=== PATIENT | male | born 1965 | race Caucasian/White ===

== ENCOUNTER 2016-03-30 18:15 | Outpatient (CLI) | payer MEDICARE, MEDICAID ==
[2016-03-31 14:13] LABS: #Basophils 0.1 thou/uL (0.0-0.2); #Monocytes 0.4 thou/uL (0.11-0.59); #Neutrophils 3.7 thou/uL (1.40-6.50); %Basophils 1.3 % (0.0-1.0); %Eosinophils 0.8 % (0.0-10.0); %Monocytes 7.8 % (0.0-10.0); Hematocrit 44.6 % (42.0-52.0); Mean Platelet Volume 6.8 fL (7.4-10.4); Red Blood Cell (RBC) Count 4.62 mill/uL (4.70-6.10); White Blood Cell (WBC) Count 5.2 thou/uL (4.8-10.8)
[2016-03-31 20:51] LABS: ALT (SGPT) 24 U/L (0-55); AST (SGOT) 23 U/L (5-34); Alkaline Phosphatase 82 U/L (40-150); Anion Gap 17 mmol/L (10-20); BUN (Urea Nitrogen) 6 mg/dL (8.4-25.7); Bilirubin, Total 0.3 mg/dL (0.2-1.2); Calc. Creatinine Clearance 0 mL/min (70-130); Calcium 9.6 mg/dL (7.8-10.44); Carbon Dioxide 23 mmol/L (22-29); Chloride 100 mmol/L (98-107); Estimated GFR-MDRD Greater than 90; Globulin 2.4 g/dL (2.4-3.5); LDL Cholesterol, Calculated 77 mg/dL
== END 2016-03-30 18:16 | disposition home or self-care (01) ==
LOC: HPCALD 18:15
PROVIDERS: ATTEND Family Medicine
DX: Z12.5 Encounter for screening for malignant neoplasm of prostate (principal); E78.5 Hyperlipidemia, unspecified; I10 Essential (primary) hypertension
CPT/HCPCS: 80053; 80061; 85025; G0103

== ENCOUNTER 2016-09-28 11:48 | Outpatient (CLI) | payer MEDICARE, MEDICAID ==
[2016-09-28 12:06] LABS: #Basophils 0.1 thou/uL (0.0-0.2); #Lymphocytes 0.9 thou/uL (1.20-3.40); #Monocytes 0.5 thou/uL (0.11-0.59); %Basophils 1.2 % (0.0-1.0); %Eosinophils 0.7 % (0.0-10.0); %Lymphocytes 13.8 % (21.0-51.0); %Monocytes 7.8 % (0.0-10.0); %Neutrophils 76.6 % (42.0-75.0); Hemoglobin 15.7 g/dL (14.0-18.0); Mean Corpuscular HGB CONC 35.2 g/dL (32.0-36.0); Mean Corpuscular Hemoglobin 32.4 pg (27.0-31.0); Mean Platelet Volume 7.8 fL (7.4-10.4); Platelet Count 205 thou/uL (130-400); RBC Distribution Width 11.4 % (11.5-14.5); Red Blood Cell (RBC) Count 4.84 mill/uL (4.70-6.10); White Blood Cell (WBC) Count 6.6 thou/uL (4.8-10.8)
[2016-09-28 12:21] LABS: ALT (SGPT) 26 U/L (8-55); AST (SGOT) 24 U/L (5-34); Albumin 4.5 g/dL (3.5-5.0); Alkaline Phosphatase 87 U/L (40-150); Anion Gap 15 mmol/L (10-20); BUN (Urea Nitrogen) 7 mg/dL (8.4-25.7); Bilirubin, Total 0.7 mg/dL (0.2-1.2); Calc. Creatinine Clearance 0 mL/min (70-130); Calcium 9.5 mg/dL (7.8-10.44); Carbon Dioxide 26 mmol/L (22-29); Chloride 95 mmol/L (98-107); Cholesterol 131 mg/dl (< 200 Desired); Estimated GFR-MDRD Greater than 90; Globulin 2.2 g/dL (2.4-3.5); Glucose 110 mg/dL (70-105); HDL Cholesterol 33 mg/dL (>60 Neg Risk); LDL Cholesterol, Calculated 76 mg/dL; Potassium 4.9 mmol/L (3.5-5.1); Protein, Total 6.7 g/dL (6.0-8.3); Sodium 131 mmol/L (136-145); Triglycerides 108 mg/dL (Less than 150)
== END 2016-09-28 11:49 | disposition home or self-care (01) ==
LOC: HPCALD 11:48
PROVIDERS: ATTEND Family Medicine
DX: E78.5 Hyperlipidemia, unspecified (principal); I10 Essential (primary) hypertension
CPT/HCPCS: 36415; 80053; 80061; 84443; 85025

== ENCOUNTER 2021-04-08 15:09 | Emergency (ER) | payer MEDICARE, MEDICAID ==
[2021-04-08 16:17] LABS: #Basophils 0.1 thou/uL (0.0-0.2); #Eosinphils 0.1 thou/uL (0.0-0.7); #Lymphocytes 0.5 thou/uL (1.20-3.40); #Monocytes 0.5 thou/uL (0.11-0.59); #Neutrophils 7.2 thou/uL (1.40-6.50); %Basophils 0.8 % (0.0-1.0); %Eosinophils 0.6 % (0.0-10.0); %Lymphocytes 6.2 % (21.0-51.0); %Monocytes 6.2 % (0.0-10.0); %Neutrophils 86.1 % (42.0-75.0); Hemoglobin 13.5 g/dL (14.0-18.0); Mean Corpuscular HGB CONC 34.3 g/dL (32.0-36.0); Mean Corpuscular Hemoglobin 32.8 pg (27.0-31.0); Mean Corpuscular Volume 95.5 fL (78.0-98.0); Platelet Count 147 thou/uL (130-400); RBC Distribution Width 11.7 % (11.5-14.5); Red Blood Cell (RBC) Count 4.11 mill/uL (4.70-6.10); White Blood Cell (WBC) Count 8.3 thou/uL (4.8-10.8)
[2021-04-08 16:35] LABS: ALT (SGPT) 21 U/L (8-55); AST (SGOT) 24 U/L (5-34); Alkaline Phosphatase 72 U/L (40-110); Anion Gap 12 mmol/L (10-20); BUN (Urea Nitrogen) Less than 4 mg/dL (8.4-25.7); Bilirubin, Total 0.7 mg/dL (0.2-1.2); Calc. Creatinine Clearance 0 mL/min (70-130); Calcium 8.9 mg/dL (7.8-10.44); Carbon Dioxide 24 mmol/L (22-29); Chloride 94 mmol/L (98-107); Globulin 2.1 g/dL (2.4-3.5); Glucose 119 mg/dL (70-105); Potassium 4.4 mmol/L (3.5-5.1); Protein, Total 6.1 g/dL (6.0-8.3); Sodium 126 mmol/L (136-145)
[2021-04-08] MEDS ORDERED: Fentanyl 100 MCG/2 ML VIAL ONE (17:08)
[2021-04-08 17:09] LABS: SARS-CoV-2 NAA Rapid Test Not Detected (NotDetected)
[2021-04-08] MEDS ORDERED: Ondansetron PF 4 MG/2 ML Vial ONE (17:09)
== END 2021-04-08 17:39 | disposition short-term general hospital (02) ==
LOC: BURERS 15:09
DX: S72.012A Unspecified intracapsular fracture of left femur, initial encounter for closed fracture (principal); E87.1 Hypo-osmolality and hyponatremia; E78.5 Hyperlipidemia, unspecified; I10 Essential (primary) hypertension; Z20.822 Contact with and (suspected) exposure to COVID-19; Z79.899 Other long term (current) drug therapy; W01.0XXA Fall on same level from slipping, tripping and stumbling without subsequent striking against object, initial encounter
CPT/HCPCS: 80053; 85025; 96374; 96375; J2405; J3010; U0002

== ENCOUNTER 2021-04-13 19:29 | Inpatient (IN) | payer MEDICARE, OTHER ==
[2021-04-14 17:22] VITALS: BMI 22.8
[2021-04-14] MEDS: Ferrous Gluconate 324 MG TAB PO SCH (18:45)
[2021-04-14] MEDS: Acetaminophen 500 MG TAB PO SCH (21:19)
[2021-04-14] MEDS: Cyanocobalamin (Vitamin B-12) 1,000 MCG TAB PO SCH (21:21)
[2021-04-14] MEDS: risperiDONE 0.5 MG TAB PO SCH (21:21)
[2021-04-14] MEDS: Aspirin 325 MG TAB PO SCH (21:21)
[2021-04-14] MEDS: Benztropine 1 MG TAB PO SCH (21:21)
[2021-04-14] MEDS: diphenhydrAMINE 25 MG CAP PO SCH (21:21)
[2021-04-14] MEDS: Atorvastatin Calcium 10 MG TAB PO SCH (21:21)
[2021-04-14] MEDS: Albuterol Sulfate 2.5 mg/3 ml Neb NEB SCH (21:23)
[2021-04-14] MEDS: Fluticasone Propionate Nasal Spray 16 gm Bottle NASAL SCH (23:41)
[2021-04-14] MEDS: Mometasone 100 MCG/PUFF (1 INHALER) INH SCH (23:44)
[2021-04-15] MEDS: Acetaminophen 500 MG TAB PO SCH ×4 (03:13→20:23)
[2021-04-15] MEDS: Ferrous Gluconate 324 MG TAB PO SCH ×2 (09:59→16:06)
[2021-04-15] MEDS: Aspirin 325 MG TAB PO SCH ×2 (09:59→20:25)
[2021-04-15] MEDS: Benztropine 1 MG TAB PO SCH ×2 (09:59→20:25)
[2021-04-15] MEDS: Cholecalciferol 1,000 UNITS (25 MCG) TAB PO SCH (09:59)
[2021-04-15] MEDS: Cyanocobalamin (Vitamin B-12) 1,000 MCG TAB PO SCH ×2 (10:00→20:25)
[2021-04-15] MEDS: Losartan Potassium 50 MG TAB PO SCH (10:00)
[2021-04-15] MEDS: risperiDONE 0.5 MG TAB PO SCH ×2 (10:01→21:32)
[2021-04-15] MEDS: Fluticasone Propionate Nasal Spray 16 gm Bottle NASAL SCH ×2 (10:01→21:31)
[2021-04-15] MEDS: Mometasone 100 MCG/PUFF (1 INHALER) INH SCH ×2 (10:02→20:27)
[2021-04-15] MEDS: Albuterol Sulfate 2.5 mg/3 ml Neb NEB SCH ×2 (10:07→20:42)
[2021-04-15] MEDS: Azelastine 137 MCG/Spray 30 ML NS SCH (10:07)
[2021-04-15] MEDS: diphenhydrAMINE 25 MG CAP PO SCH (20:25)
[2021-04-15] MEDS: Atorvastatin Calcium 10 MG TAB PO SCH (21:39)
[2021-04-16] MEDS: Acetaminophen 500 MG TAB PO SCH ×4 (02:28→21:46)
[2021-04-16] MEDS: Cholecalciferol 1,000 UNITS (25 MCG) TAB PO SCH (08:44)
[2021-04-16] MEDS: Losartan Potassium 50 MG TAB PO SCH (08:44)
[2021-04-16] MEDS: Benztropine 1 MG TAB PO SCH ×2 (08:44→21:47)
[2021-04-16] MEDS: Cyanocobalamin (Vitamin B-12) 1,000 MCG TAB PO SCH ×2 (08:45→21:47)
[2021-04-16] MEDS: Ferrous Gluconate 324 MG TAB PO SCH ×2 (08:45→17:07)
[2021-04-16] MEDS: risperiDONE 0.5 MG TAB PO SCH ×2 (08:45→21:47)
[2021-04-16] MEDS: Aspirin 325 MG TAB PO SCH ×2 (08:45→21:47)
[2021-04-16] MEDS: Albuterol Sulfate 2.5 mg/3 ml Neb NEB SCH ×2 (08:46→21:55)
[2021-04-16] MEDS: Azelastine 137 MCG/Spray 30 ML NS SCH (08:48)
[2021-04-16] MEDS: Mometasone 100 MCG/PUFF (1 INHALER) INH SCH ×2 (08:49→21:47)
[2021-04-16] MEDS: Fluticasone Propionate Nasal Spray 16 gm Bottle NASAL SCH ×2 (09:20→21:55)
[2021-04-16] MEDS: diphenhydrAMINE 25 MG CAP PO SCH (21:47)
[2021-04-16] MEDS: Atorvastatin Calcium 10 MG TAB PO SCH (21:47)
[2021-04-17] MEDS: Acetaminophen 500 MG TAB PO SCH ×4 (04:13→20:54)
[2021-04-17] MEDS ORDERED: Lidocaine 1% w/Epinephrine 1:100K 20 ML VIAL ONE (07:47)
[2021-04-17] MEDS: Losartan Potassium 50 MG TAB PO SCH (08:46)
[2021-04-17] MEDS: Cholecalciferol 1,000 UNITS (25 MCG) TAB PO SCH (08:46)
[2021-04-17] MEDS: Aspirin 325 MG TAB PO SCH ×2 (08:46→20:51)
[2021-04-17] MEDS: Benztropine 1 MG TAB PO SCH ×2 (08:46→20:54)
[2021-04-17] MEDS: Cyanocobalamin (Vitamin B-12) 1,000 MCG TAB PO SCH ×2 (08:46→20:55)
[2021-04-17] MEDS: Ferrous Gluconate 324 MG TAB PO SCH ×2 (08:46→17:11)
[2021-04-17] MEDS: risperiDONE 0.5 MG TAB PO SCH ×2 (08:49→20:52)
[2021-04-17] MEDS: Fluticasone Propionate Nasal Spray 16 gm Bottle NASAL SCH ×2 (08:50→20:56)
[2021-04-17] MEDS: Mometasone 100 MCG/PUFF (1 INHALER) INH SCH ×2 (08:51→20:57)
[2021-04-17] MEDS: Azelastine 137 MCG/Spray 30 ML NS SCH (08:52)
[2021-04-17] MEDS: Albuterol Sulfate 2.5 mg/3 ml Neb NEB SCH ×2 (08:53→21:03)
[2021-04-17] MEDS: Sulfameth/Trimethoprim DS 800-160mg TAB PO SCH ×2 (10:44→20:52)
[2021-04-17] MEDS: Atorvastatin Calcium 10 MG TAB PO SCH (20:52)
[2021-04-17] MEDS: diphenhydrAMINE 25 MG CAP PO SCH (20:53)
[2021-04-18] MEDS: Acetaminophen 500 MG TAB PO SCH ×4 (02:32→21:28)
[2021-04-18] MEDS: Mometasone 100 MCG/PUFF (1 INHALER) INH SCH ×2 (09:19→21:30)
[2021-04-18] MEDS: Azelastine 137 MCG/Spray 30 ML NS SCH (09:19)
[2021-04-18] MEDS: Fluticasone Propionate Nasal Spray 16 gm Bottle NASAL SCH ×2 (09:20→21:30)
[2021-04-18] MEDS: Ferrous Gluconate 324 MG TAB PO SCH ×2 (09:21→16:44)
[2021-04-18] MEDS: Benztropine 1 MG TAB PO SCH ×2 (09:21→21:29)
[2021-04-18] MEDS: Cholecalciferol 1,000 UNITS (25 MCG) TAB PO SCH (09:22)
[2021-04-18] MEDS: Cyanocobalamin (Vitamin B-12) 1,000 MCG TAB PO SCH ×2 (09:22→21:30)
[2021-04-18] MEDS: Sulfameth/Trimethoprim DS 800-160mg TAB PO SCH ×2 (09:22→21:30)
[2021-04-18] MEDS: Losartan Potassium 50 MG TAB PO SCH (09:22)
[2021-04-18] MEDS: Aspirin 325 MG TAB PO SCH ×2 (09:22→21:29)
[2021-04-18] MEDS: risperiDONE 0.5 MG TAB PO SCH ×2 (09:24→21:30)
[2021-04-18] MEDS: Albuterol Sulfate 2.5 mg/3 ml Neb NEB SCH ×2 (09:24→21:28)
[2021-04-18] MEDS: Polyethylene Glycol 3350 17 GM Packet PO PRN (14:24)
[2021-04-18] MEDS: Atorvastatin Calcium 10 MG TAB PO SCH (21:29)
[2021-04-18] MEDS: diphenhydrAMINE 25 MG CAP PO SCH (21:30)
[2021-04-19] MEDS: Acetaminophen 500 MG TAB PO SCH ×4 (03:30→21:38)
[2021-04-19] MEDS: Ferrous Gluconate 324 MG TAB PO SCH ×2 (10:10→18:49)
[2021-04-19] MEDS: Sulfameth/Trimethoprim DS 800-160mg TAB PO SCH ×2 (10:10→21:40)
[2021-04-19] MEDS: Aspirin 325 MG TAB PO SCH ×2 (10:11→21:37)
[2021-04-19] MEDS: Cholecalciferol 1,000 UNITS (25 MCG) TAB PO SCH (10:12)
[2021-04-19] MEDS: Benztropine 1 MG TAB PO SCH ×2 (10:13→21:38)
[2021-04-19] MEDS: Cyanocobalamin (Vitamin B-12) 1,000 MCG TAB PO SCH ×2 (10:13→21:41)
[2021-04-19] MEDS: Azelastine 137 MCG/Spray 30 ML NS SCH (10:13)
[2021-04-19] MEDS: Fluticasone Propionate Nasal Spray 16 gm Bottle NASAL SCH ×2 (10:14→21:44)
[2021-04-19] MEDS: risperiDONE 0.5 MG TAB PO SCH ×2 (10:14→21:40)
[2021-04-19] MEDS: Albuterol Sulfate 2.5 mg/3 ml Neb NEB SCH ×2 (10:15→21:41)
[2021-04-19] MEDS: Mometasone 100 MCG/PUFF (1 INHALER) INH SCH ×2 (10:15→21:45)
[2021-04-19] MEDS: Polyethylene Glycol 3350 17 GM Packet PO PRN (10:16)
[2021-04-19] MEDS: Losartan Potassium 50 MG TAB PO SCH (16:03)
[2021-04-19] MEDS: diphenhydrAMINE 25 MG CAP PO SCH (21:38)
[2021-04-19] MEDS: Atorvastatin Calcium 10 MG TAB PO SCH (21:39)
[2021-04-20] MEDS: Acetaminophen 500 MG TAB PO SCH ×4 (02:47→21:23)
[2021-04-20] MEDS: risperiDONE 0.5 MG TAB PO SCH ×2 (08:44→21:23)
[2021-04-20] MEDS: Cholecalciferol 1,000 UNITS (25 MCG) TAB PO SCH (08:44)
[2021-04-20] MEDS: Losartan Potassium 50 MG TAB PO SCH (08:44)
[2021-04-20] MEDS: Cyanocobalamin (Vitamin B-12) 1,000 MCG TAB PO SCH ×2 (08:44→21:23)
[2021-04-20] MEDS: Benztropine 1 MG TAB PO SCH ×2 (08:45→21:24)
[2021-04-20] MEDS: Ferrous Gluconate 324 MG TAB PO SCH ×2 (08:45→17:18)
[2021-04-20] MEDS: Sulfameth/Trimethoprim DS 800-160mg TAB PO SCH ×2 (08:45→21:24)
[2021-04-20] MEDS: Aspirin 325 MG TAB PO SCH ×2 (08:45→21:24)
[2021-04-20] MEDS: Albuterol Sulfate 2.5 mg/3 ml Neb NEB SCH ×2 (08:46→21:24)
[2021-04-20] MEDS: Mometasone 100 MCG/PUFF (1 INHALER) INH SCH ×2 (08:52→21:25)
[2021-04-20] MEDS: Fluticasone Propionate Nasal Spray 16 gm Bottle NASAL SCH ×2 (08:53→21:26)
[2021-04-20] MEDS: Azelastine 137 MCG/Spray 30 ML NS SCH (08:54)
[2021-04-20 12:47] LABS: SARS-CoV-2 PCR by NAA Not Detected (NotDetected)
[2021-04-20] MEDS: diphenhydrAMINE 25 MG CAP PO SCH (21:24)
[2021-04-20] MEDS: Atorvastatin Calcium 10 MG TAB PO SCH (21:24)
[2021-04-21] MEDS: Acetaminophen 500 MG TAB PO SCH ×4 (02:30→21:35)
[2021-04-21] MEDS: Losartan Potassium 50 MG TAB PO SCH (08:59)
[2021-04-21] MEDS: risperiDONE 0.5 MG TAB PO SCH ×2 (08:59→21:34)
[2021-04-21] MEDS: Benztropine 1 MG TAB PO SCH ×2 (09:00→21:35)
[2021-04-21] MEDS: Aspirin 325 MG TAB PO SCH ×2 (09:00→21:35)
[2021-04-21] MEDS: Cholecalciferol 1,000 UNITS (25 MCG) TAB PO SCH (09:00)
[2021-04-21] MEDS: Cyanocobalamin (Vitamin B-12) 1,000 MCG TAB PO SCH ×2 (09:00→21:35)
[2021-04-21] MEDS: Sulfameth/Trimethoprim DS 800-160mg TAB PO SCH ×2 (09:00→21:35)
[2021-04-21] MEDS: Ferrous Gluconate 324 MG TAB PO SCH ×2 (09:01→17:05)
[2021-04-21] MEDS: Mometasone 100 MCG/PUFF (1 INHALER) INH SCH ×2 (09:05→21:36)
[2021-04-21] MEDS: Fluticasone Propionate Nasal Spray 16 gm Bottle NASAL SCH ×2 (09:06→21:36)
[2021-04-21] MEDS: Azelastine 137 MCG/Spray 30 ML NS SCH (09:07)
[2021-04-21] MEDS: Albuterol Sulfate 2.5 mg/3 ml Neb NEB SCH ×2 (09:09→21:37)
[2021-04-21] MEDS: diphenhydrAMINE 25 MG CAP PO SCH (21:35)
[2021-04-21] MEDS: Atorvastatin Calcium 10 MG TAB PO SCH (21:35)
[2021-04-22] MEDS: Acetaminophen 500 MG TAB PO SCH ×4 (03:23→23:54)
[2021-04-22] MEDS: risperiDONE 0.5 MG TAB PO SCH ×2 (11:16→23:56)
[2021-04-22] MEDS: Polyethylene Glycol 3350 17 GM Packet PO PRN (11:16)
[2021-04-22] MEDS: Ferrous Gluconate 324 MG TAB PO SCH ×2 (11:17→16:42)
[2021-04-22] MEDS: Cyanocobalamin (Vitamin B-12) 1,000 MCG TAB PO SCH ×2 (11:17→23:56)
[2021-04-22] MEDS: Cholecalciferol 1,000 UNITS (25 MCG) TAB PO SCH (11:17)
[2021-04-22] MEDS: Losartan Potassium 50 MG TAB PO SCH (11:17)
[2021-04-22] MEDS: Aspirin 325 MG TAB PO SCH ×2 (11:17→23:55)
[2021-04-22] MEDS: Benztropine 1 MG TAB PO SCH ×2 (11:18→23:56)
[2021-04-22] MEDS: Azelastine 137 MCG/Spray 30 ML NS SCH (11:19)
[2021-04-22] MEDS: Fluticasone Propionate Nasal Spray 16 gm Bottle NASAL SCH ×2 (11:19→23:55)
[2021-04-22] MEDS: Mometasone 100 MCG/PUFF (1 INHALER) INH SCH ×2 (11:20→23:22)
[2021-04-22] MEDS: Albuterol Sulfate 2.5 mg/3 ml Neb NEB SCH ×2 (11:31→23:54)
[2021-04-22] MEDS ORDERED: Mometasone 100 MCG/PUFF (1 INHALER) INH SCH (23:15)
[2021-04-22] MEDS ORDERED: Acetaminophen 500 MG TAB PO SCH (23:15)
[2021-04-22] MEDS ORDERED: Aspirin 325 MG TAB PO SCH (23:15)
[2021-04-22] MEDS ORDERED: Fluticasone Propionate Nasal Spray 16 gm Bottle NASAL SCH (23:15)
[2021-04-22] MEDS ORDERED: Albuterol Sulfate 2.5 mg/3 ml Neb NEB SCH (23:15)
[2021-04-22] MEDS ORDERED: risperiDONE 0.5 MG TAB PO SCH (23:15)
[2021-04-22] MEDS ORDERED: Atorvastatin Calcium 10 MG TAB PO SCH (23:15)
[2021-04-22] MEDS ORDERED: Cyanocobalamin (Vitamin B-12) 1,000 MCG TAB PO SCH (23:45)
[2021-04-22] MEDS ORDERED: Benztropine 1 MG TAB PO SCH (23:45)
[2021-04-22] MEDS: Atorvastatin Calcium 10 MG TAB PO SCH (23:55)
[2021-04-23] MEDS: Acetaminophen 500 MG TAB PO SCH ×4 (04:16→21:19)
[2021-04-23] MEDS: risperiDONE 0.5 MG TAB PO SCH ×2 (09:54→21:20)
[2021-04-23] MEDS: Losartan Potassium 50 MG TAB PO SCH (09:55)
[2021-04-23] MEDS: Cholecalciferol 1,000 UNITS (25 MCG) TAB PO SCH (09:55)
[2021-04-23] MEDS: Polyethylene Glycol 3350 17 GM Packet PO PRN (09:55)
[2021-04-23] MEDS: Ferrous Gluconate 324 MG TAB PO SCH ×2 (09:56→18:17)
[2021-04-23] MEDS: Aspirin 325 MG TAB PO SCH ×2 (09:56→21:20)
[2021-04-23] MEDS: Benztropine 1 MG TAB PO SCH ×2 (09:56→21:20)
[2021-04-23] MEDS: Cyanocobalamin (Vitamin B-12) 1,000 MCG TAB PO SCH ×2 (09:56→21:20)
[2021-04-23] MEDS: Mometasone 100 MCG/PUFF (1 INHALER) INH SCH ×2 (09:57→21:21)
[2021-04-23] MEDS: Azelastine 137 MCG/Spray 30 ML NS SCH (09:57)
[2021-04-23] MEDS: Fluticasone Propionate Nasal Spray 16 gm Bottle NASAL SCH ×2 (09:58→21:21)
[2021-04-23] MEDS: Albuterol Sulfate 2.5 mg/3 ml Neb NEB SCH ×2 (09:58→21:53)
[2021-04-23] MEDS: Atorvastatin Calcium 10 MG TAB PO SCH (21:20)
[2021-04-24] MEDS: Acetaminophen 500 MG TAB PO SCH ×4 (04:00→21:46)
[2021-04-24] MEDS: risperiDONE 0.5 MG TAB PO SCH ×2 (08:36→21:46)
[2021-04-24] MEDS: Ferrous Gluconate 324 MG TAB PO SCH ×2 (08:37→16:37)
[2021-04-24] MEDS: Aspirin 325 MG TAB PO SCH ×2 (08:37→21:47)
[2021-04-24] MEDS: Benztropine 1 MG TAB PO SCH ×2 (08:37→21:47)
[2021-04-24] MEDS: Cholecalciferol 1,000 UNITS (25 MCG) TAB PO SCH (08:37)
[2021-04-24] MEDS: Losartan Potassium 50 MG TAB PO SCH (08:38)
[2021-04-24] MEDS: Cyanocobalamin (Vitamin B-12) 1,000 MCG TAB PO SCH ×2 (08:38→21:46)
[2021-04-24] MEDS: Mometasone 100 MCG/PUFF (1 INHALER) INH SCH ×2 (08:41→21:48)
[2021-04-24] MEDS: Azelastine 137 MCG/Spray 30 ML NS SCH (08:41)
[2021-04-24] MEDS: Fluticasone Propionate Nasal Spray 16 gm Bottle NASAL SCH ×2 (08:42→21:47)
[2021-04-24] MEDS: Albuterol Sulfate 2.5 mg/3 ml Neb NEB SCH ×2 (08:44→21:46)
[2021-04-24] MEDS: Atorvastatin Calcium 10 MG TAB PO SCH (21:45)
[2021-04-25] MEDS: Acetaminophen 500 MG TAB PO SCH ×4 (03:00→21:19)
[2021-04-25] MEDS: Albuterol Sulfate 2.5 mg/3 ml Neb NEB SCH ×2 (10:09→21:21)
[2021-04-25] MEDS: Fluticasone Propionate Nasal Spray 16 gm Bottle NASAL SCH ×2 (10:09→21:23)
[2021-04-25] MEDS: Cyanocobalamin (Vitamin B-12) 1,000 MCG TAB PO SCH ×2 (10:10→21:21)
[2021-04-25] MEDS: Aspirin 325 MG TAB PO SCH ×2 (10:10→21:21)
[2021-04-25] MEDS: Losartan Potassium 50 MG TAB PO SCH (10:10)
[2021-04-25] MEDS: Cholecalciferol 1,000 UNITS (25 MCG) TAB PO SCH (10:10)
[2021-04-25] MEDS: Ferrous Gluconate 324 MG TAB PO SCH ×2 (10:10→16:59)
[2021-04-25] MEDS: Mometasone 100 MCG/PUFF (1 INHALER) INH SCH ×2 (10:12→21:25)
[2021-04-25] MEDS: risperiDONE 0.5 MG TAB PO SCH ×2 (10:12→21:20)
[2021-04-25] MEDS: Azelastine 137 MCG/Spray 30 ML NS SCH (10:12)
[2021-04-25] MEDS: Benztropine 1 MG TAB PO SCH ×2 (10:13→21:21)
[2021-04-25] MEDS: Atorvastatin Calcium 10 MG TAB PO SCH (21:21)
[2021-04-26] MEDS: Acetaminophen 500 MG TAB PO SCH ×2 (03:02→08:54)
[2021-04-26 06:24] VITALS: BP 122/74; TEMP 98.6
[2021-04-26] MEDS: Aspirin 325 MG TAB PO SCH (08:54)
[2021-04-26] MEDS: Albuterol Sulfate 2.5 mg/3 ml Neb NEB SCH (08:54)
[2021-04-26] MEDS: Ferrous Gluconate 324 MG TAB PO SCH (08:54)
[2021-04-26] MEDS: Benztropine 1 MG TAB PO SCH (08:55)
[2021-04-26] MEDS: Losartan Potassium 50 MG TAB PO SCH (08:55)
[2021-04-26] MEDS: Mometasone 100 MCG/PUFF (1 INHALER) INH SCH (08:55)
[2021-04-26] MEDS: Cholecalciferol 1,000 UNITS (25 MCG) TAB PO SCH (08:55)
[2021-04-26] MEDS: Cyanocobalamin (Vitamin B-12) 1,000 MCG TAB PO SCH (08:55)
[2021-04-26] MEDS: Fluticasone Propionate Nasal Spray 16 gm Bottle NASAL SCH (08:56)
[2021-04-26] MEDS: Azelastine 137 MCG/Spray 30 ML NS SCH (08:56)
[2021-04-26] MEDS: risperiDONE 0.5 MG TAB PO SCH (11:31)
== END 2021-04-26 12:25 | disposition home or self-care (01) | DRG 607 ==
LOC: BURMED 04-14 14:15
PROVIDERS: ADMIT Family Medicine; ATTEND Family Medicine
PROC: 0W9K0ZZ Drainage of Upper Back, Open Approach (ICD-10-PCS; principal; 2021-04-17)
DX: L72.3 Sebaceous cyst (principal); S72.002D Fracture of unspecified part of neck of left femur, subsequent encounter for closed fracture with routine healing; I10 Essential (primary) hypertension; E78.5 Hyperlipidemia, unspecified; J45.909 Unspecified asthma, uncomplicated; F20.9 Schizophrenia, unspecified; R21 Rash and other nonspecific skin eruption; G80.9 Cerebral palsy, unspecified; Z20.822 Contact with and (suspected) exposure to COVID-19; W19.XXXD Unspecified fall, subsequent encounter; K59.00 Constipation, unspecified; Z90.49 Acquired absence of other specified parts of digestive tract; Z88.8 Allergy status to other drugs, medicaments and biological substances
CPT/HCPCS: 94640; J7611; U0003; U0005